=== PATIENT | female | born 1985 | race Two or more races ===

== ENCOUNTER 2018-04-24 20:15 | Observation (INO) | payer MEDICAID ==
[~2018-04-24] VITALS: Ht 160 cm; Wt 77.6 kg
[2018-04-24] MEDS ORDERED: TERBUTALINE SULFATE 1 MG/ML 1ML VIAL SC ONE (20:45)
[2018-04-24] MEDS: TERBUTALINE SULFATE 1 MG/ML 1ML VIAL SC PRN ×3 (20:48→22:06)
[2018-04-24] MEDS ORDERED: LACTATED RINGER'S 1,000 ML IV PRN (21:30)
[2018-04-24] MEDS ORDERED: BETAMETHASONE ACET (6MG/ML) 5ML VIAL IM ONE (22:15)
[2018-04-24 22:58] LABS: Urine Bacteria NONE SEEN /hpf (None Seen); Urine Blood Negative /uL (Negative); Urine Mucus FEW (None Seen); Urine Specific Gravity 1.025 (1.001-1.035); Urine WBC 2 /hpf (0 - 5)
[2018-04-24 23:12] LABS: Amphetamine Screen, Urine NEGATIVE (NEGATIVE); Barbiturate Scree,Urine NEGATIVE (NEGATIVE); Benzodiazephine Screen, Urine NEGATIVE (NEGATIVE); Cannabinoid Screen, Urine NEGATIVE (NEGATIVE); Cocaine Screen, Urine NEGATIVE (NEGATIVE); Opiate Scree,Urine NEGATIVE (NEGATIVE); Phencyclidine Screen, Urine NEGATIVE (NEGATIVE)
[2018-04-24] MEDS ORDERED: NIFEdipine 10 MG CAP PO ONE (23:30)
[2018-04-25] MEDS ORDERED: PREN-153 OR (22:20)
[2018-04-25] MEDS ORDERED: NIF10C PO (22:21)
== END 2018-04-24 23:56 | disposition home or self-care (01) | DRG 563 ==
LOC: LDRP 20:15
PROVIDERS: ADMIT Specialist; ATTEND Specialist
DX: O60.03 Preterm labor without delivery, third trimester (principal); O26.893 Other specified pregnancy related conditions, third trimester; J45.909 Unspecified asthma, uncomplicated; N89.8 Other specified noninflammatory disorders of vagina; R11.0 Nausea; O99.513 Diseases of the respiratory system complicating pregnancy, third trimester; Z87.891 Personal history of nicotine dependence; Z3A.36 36 weeks gestation of pregnancy
CPT/HCPCS: 59025; 80307; 81001; 87086; 94760; 96372; G0378; J0702; J3105; 96365; 96366

== ENCOUNTER 2018-04-25 21:51 | Observation (INO) | payer MEDICAID ==
[~2018-04-25] VITALS: Ht 160 cm; Wt 77.6 kg
[2018-04-25] MEDS ORDERED: PREN-153 OR (22:20)
[2018-04-25] MEDS ORDERED: NIF10C PO (22:21)
[2018-04-25] MEDS ORDERED: BETAMETHASONE ACET (6MG/ML) 5ML VIAL IM ONE (23:15)
== END 2018-04-25 22:39 | disposition home or self-care (01) | DRG 563 ==
LOC: LDRP 21:51
PROVIDERS: ADMIT Specialist; ATTEND Specialist
DX: O60.03 Preterm labor without delivery, third trimester (principal); Z3A.36 36 weeks gestation of pregnancy; Z87.891 Personal history of nicotine dependence
CPT/HCPCS: 59025; 81002; 96372; G0378